=== PATIENT | male | born 1970 | race Caucasian/White ===

== ENCOUNTER 2023-06-30 15:16 | Emergency (ER) | payer OTHER, SELFPAY ==
[2023-06-30 15:22] VITALS: BP 121/80
[2023-06-30 15:48] LABS: % Basophils 1.3 % (0-2); % Eosinophils 1.8 % (0-6); % Immature Granulocytes 0.4 % (0-0.5); % Lymphocytes 21.4 % (20.5-51.1); % Monocytes 9.7 % (1.7-9.3); % Neutrophils 65.4 % (42.2-75.2); Absolute Basophils 0.1 10^3/uL (0-0.2); Absolute Eosinophils 0.2 10^3/uL (0-0.7); Absolute Lymphocytes 2.2 10^3/uL (1.2-3.4); Absolute Neutrophils 6.7 10^3/uL (1.4-6.5); Hematocrit 39.6 % (39.0-52.0); Mean Corp Hgb Conc. 35.4 g/dL (33.0-37.0); Mean Corpuscular Hgb 29.8 pg (27.0-31.0); Mean Corpuscular Volume 84.3 fL (80.0-94.0); Mean Platelet Volume 9.9 fL (7.4-10.4); Nucleated Red Blood Cells % 0 % (-); Platelet Count 404 10^3/uL (130-400); Red Cell Dist. Width 12.4 % (11.5-14.5); White Blood Cell Count 10.2 10^3/uL (4.8-10.8)
[2023-06-30 15:59] LABS: ALT (SGPT) 15 U/L (0-50); AST (SGOT) 25 U/L (17-59); Albumin 4.1 g/dl (3.5-5.0); Alkaline Phosphatase 92 U/L (38-126); Blood Urea Nitrogen 17 mg/dl (9-20); Calcium 10.1 mg/dl (8.4-10.2); Carbon Dioxide 28 mmol/L (22-30); Chloride 91 mmol/L (98-107); Glucose 422 mg/dl (70-99); Potassium 4.9 mmol/L (3.5-5.1); Sodium 130 mmol/L (135-145); Total Bilirubin 0.7 mg/dl (0.2-1.3); Total Protein 6.8 g/dl (6.3-8.2); eGFR > 60.00
--- NOTE | 2023-06-30 17:42 | ED.GENMED ---
History of Present Illness
General
Chief Complaint: Extremity Pain (non-traumatic)
Source: patient
Exam Limitations: none
Time Seen by Provider: 06/30/23 17:27
Travel History
Have you had any contact with someone who has COVID-19?: No
Do you have any symptoms of coronavirus? Fever > 100 degrees, chills, cough, shortness of breath, sore throat, loss of taste or smell, muscle aches, or headache?: No
History of Present Illness
History of Present Illness:
See MDM
Past History
Past History
ED Past Medical History: IDDM
ED Past Surgical History: None
Social History
Tobacco: Non-smoker
Alcohol: Occasional
Phy Exam
Physical Exam
Physical Exam:
See MDM
Course
Orders/Labs/Results
Orders:
Orders
06/30/23 15:33
CMP [Comprehensive Metabolic Panel] Urgent
Complete Blood Count/With Diff Urgent
06/30/23 17:38
0.9% Sodium Chloride 1000 ml [Nss] 1,000 ml IV BOLUS
Insulin Aspart [NOVOLOG vial] 11 units SC NOW STA
06/30/23 17:39
0.9% Sodium Chloride 1000 ml [Nss] 1,000 ml IV BOLUS
Abnormal Lab Results
06/30/23
15:33
Plt Count 404 H 10^3/uL
(130-400)
Absolute Neuts (auto) 6.7 H 10^3/uL
(1.4-6.5)
Absolute Monos (auto) 1.0 H 10^3/uL
(0.1-0.6)
Monocytes % 9.7 H %
(1.7-9.3)
Sodium 130 L mmol/L
(135-145)
Chloride 91 L mmol/L
(98-107)
Glucose 422 H mg/dl
(70-99)
06/30/23 15:33
06/30/23 15:33
Vital Signs
Initial and Last Documented VS:
Initial Vital Signs
Temp Pulse Resp BP Pulse Ox
98.4 F 104 16 121/80 98
06/30/23 15:22 06/30/23 15:22 06/30/23 15:22 06/30/23 15:22 06/30/23 15:22
Last Documented Vital Signs
Temp Pulse Resp BP Pulse Ox
98.4 F 104 16 121/80 98
06/30/23 15:22 06/30/23 15:22 06/30/23 15:22 06/30/23 15:22 06/30/23 15:22
MDM/Problems Addressed
Differential Diagnosis Includes:
HPI and MDM Narrative:
53-year-old male presenting for evaluation of generalized weakness and fatigue this is associated with polyuria and polydipsia. Patient also complaining of blurry vision. Blood work obtained prior to my exam. I discussed elevated blood sugar.
Patient states he has been taking his insulin but does not like how he feels when blood sugar is too low. He does acknowledge that his orthodontic technician has encouraged him to maintain a lower blood sugar. We discussed possible diabetic neuropathy.
Discussed with patient that his symptoms are likely related to a blood sugar. Patient does acknowledge. Will give dose of subcu insulin and give IV fluids. No evidence of DKA
Physical exam
General: Well appearing and non-toxic
HEENT: protecting airway. Dry mucous membranes
Neck: appears supple
CV: No evidence of cyanosis. Regular rate and rhythm
Resp: No accessory muscle use. Lungs clear
Abd: Non-distended
Extremities: No deformities
Neuro: alert
Psych: Normal affect
Skin: Intact
Problems Addressed including Acute and Chronic Conditions affecting care:
1. Hypoglycemia
Acuity: acute
Prognosis: unstable
Details: In the setting of noncompliance. Discussed tighter blood sugar control. No evidence of DKA. Will give subcu insulin
2. Dehydration
Acuity: acute
Prognosis: unstable
Details: In the setting of uncontrolled diabetes. Will give IV fluids
Updates
Differential Diagnosis (but not limited to): Hyperglycemia, dehydration, DKA
Testing considered: Urinalysis
Drug therapy (if applicable): OTC meds, please see d/c instruction regarding Rx drugs
Amount and/or Complexity of Data Reviewed
Clinical info obtained from: Patient
External data reviewed: N/A
Labs I independently reviewed (but not limited to): Hyperglycemia
Radiology: N/A
Pulse Ox: not hypoxic
EKG independently reviewed: N/A
Technical Editor: N/A
Critical Care: N/A
Risk of Complication:
Social Determinants of health: Good social support
Discussed with other providers: N/A
Escalation of Care includes Admit/Obs: After being observed in the Emergency Department, pt stable for discharge.
Occasional wrong word or 'sound a like' substitutions may have occurred due to the inherent limitations of voice recognition software. Read the chart carefully and recognize, using context, where substitutions have occurred.
*Critical Care Note
Total Time (30-74mins, 75-104mins- exclusive of procedures): Not Applicable
ED Attending Note
-
Portions of this chart may have been created with voice recognition software.� Occasional wrong word or��sound alike� substitutions may have occurred due to the inherent limitations of voice recognition software.
Discharge Plan
Departure
Patient Disposition: Home (Routine Discharge)
Date of Disposition: 06/30/23
Time of Disposition: 18:54
Patient with high blood pressure during this ER visit?: No
Discharge Problem:
Hyperglycemia
Instructions: High Blood Sugar, Adult (DC)
Activity Restrictions/Additional Instructions:
Please return for any worsening symptoms.
You may return at any time if you have further concerns.
Please follow up with your orthodontic technician and primary care doctor at the first available appointment, preferably this week. Please discuss better blood sugar control.
Thank you for choosing [facility].
Interventions
Interventions:
*ED COVID-19 Vaccine History Last Done: 06/30/23 15:22
[2023-06-30] MEDS: NOVOLOG vial 11 UNITS SC (18:23)
[2023-06-30] MEDS: NSS 1000 IV ×2 (18:23)
[2023-06-30 20:21] VITALS: BP 120/71
[2023-07-01 06:59] LABS: Glucose - Point of Care 145 mg/dl (70-99)
== END 2023-06-30 20:31 | disposition home or self-care (01) ==
LOC: EMR 15:16
PROVIDERS: EMERGENCY PHYSICIAN Student in an Organized Health Care Education/Training Program; FAMILY PHYSICIAN Family Medicine
DX: E11.65 Type 2 diabetes mellitus with hyperglycemia (principal); Z91.199 Patient's noncompliance with other medical treatment and regimen due to unspecified reason
CPT/HCPCS: 99284; 96360; 96372; 80053; 82962; 85025